=== PATIENT | female | born 1990 | race Caucasian/White ===

== ENCOUNTER → 2022-11-13 13:03 | Outpatient (BNVA) | payer OTHER, SELFPAY | PROVIDERS: PCP Family Medicine; Visit Provider Physician Assistant Surgical ==

== ENCOUNTER 2022-12-05 20:42 | Emergency (ER) | payer OTHER, SELFPAY ==
[2022-12-05 21:09] VITALS: BP 122/80; PULSE 93; RESP 18; TEMP 36.6; O2SAT 99; BMI 37.7
--- NOTE | 2022-12-05 22:44 | ED.ALLEREA ---
HPI - Allergic Reaction General Chief complaint: Dental/Oral Stated complaint: Mouth swelling/numbness in teeth Time Seen by Provider: 12/05/22 22:31 Source: patient Mode of arrival: ambulatory Limitations: no limitations History of Present Illness HPI narrative: 32-year-old female who presents emergency department for evaluation swelling underneath her tongue. Patient states that she took her dog to a dog washing center. She states that she has washed her dog before but this was a new shampoo. She states that her dog with shaking to get shampoo and water off his body. She states that after leaving the dog washing center, while she was driving home, she developed swelling underneath her tongue. She states that she has had no other symptoms . She denied swelling of her tongue, lips, face. The patient denied difficulty swallowing. She denied shortness of breath. She has not developed a rash. She denied lightheadedness, nausea, vomiting. Related Data Previous Rx's Medication Instructions Recorded prednisone 20 mg tablet 60 mg PO DAILY 5 days #15 tabs 12/05/22 Allergies Allergy/AdvReac Type Severity Reaction Status Date / Time amoxicillin Allergy Mild Hives Verified 12/05/22 21:26 cefaclor [From Ceclor] Allergy Mild Unknown Verified 12/05/22 21:26 Review of Systems Review of Systems: Yes all other systems are reviewed and are negative [facility] Past Medical History [facility] Narrative: Past medical history: Asthma Social History Social History Advance Directives: No Advance Directives Information Provided: Yes Physical Exam ED Vital Signs: Vital Signs - 24 hr 12/05/22 21:09 Temperature 97.8 F Pulse Rate 93 Respiratory Rate 18 Blood Pressure 122/80 Pulse Oximetry 99 Oxygen Delivery Method Room Air BMI result Body Mass Index 37.7 Vital signs were normal. General: Awake, alert, female patient, very pleasant cooperative, no distress HEENT: Head is normal cephalic atraumatic, pupils are equal round reactive light, sclera contact however normal, mouth revealed moist membranes with no erythema or exudates, patient has no posterior swelling or swelling of her soft palate, the uvula is midline, she has no trismus, patient very localized swelling underneath her tongue. Neck: Supple, no adenopathy Medical Decision Making Medical Decision Making MDM Narrative: 32-year-old female who presents emergency department for evaluation of localized swelling or neither tongue that occurred around 19:00 hours after she washed her dog with shampoo. The physical examination did reveal localize swelling underneath her tongue with no other concerning signs or symptoms. Patient's presentation is consistent with an allergic reaction. Patient was given Claritin 10 mg orally and prednisone 60 mg orally. She was prescribed prednisone 60 mg once a day for 5 days. She was also advised to take Claritin once a day for 7 days. She was given printed and verbal instructions discharged home Differential Diagnosis Differential diagnosis includes but is not limited to allergic reaction, angioedema Prescription Management I considered prescription management with: Other (Prednisone, Claritin) Chronic Conditions Patient?s care impacted by: Other (Asthma) Discharge Plan Discharge Clinical Impression: Allergic reaction Patient Disposition: Home, Self-Care Instructions: General Allergic Reaction (ED) Additional Instructions: The swelling underneath your tongue is consistent with an allergic reaction (allergic reaction). Take prednisone 20 mg pills, 3 pills once a day for 5 days. While you are taking prednisone, do not take any NSAIDs (Motrin, Advil, ibuprofen, Aleve, naproxen). Take Claritin 10 mg pills, 1 pill once a day for 7 days. Follow-up with your doctor in 2 days. Please return to the emergency department if your symptoms get worse or if you develop any symptoms that are concerning to you. Prescriptions: New prednisone 20 mg tablet 60 mg PO DAILY 5 Days Qty: 15 0RF
[2022-12-05] MEDS: predniSONE 20 MG TABLET 60 MG PO (23:00)
[2022-12-05] MEDS: Loratadine 10 MG TABLET PO (23:00)
== END 2022-12-05 23:01 | disposition home or self-care (01) ==
PROVIDERS: Emergency Provider Emergency Medicine Emergency Medical Services
DX: T78.40XA Allergy, unspecified, initial encounter (principal); X58.XXXA Exposure to other specified factors, initial encounter
CPT/HCPCS: 99282; 99283

== ENCOUNTER 2023-06-03 07:53 | Emergency (ER) | payer OTHER, SELFPAY ==
[2023-06-03 08:26] VITALS: BP 121/44; PULSE 81; RESP 17; TEMP 36.3; O2SAT 97; BMI 34.8
--- NOTE | 2023-06-03 08:53 | ED.FALL ---
HPI - Fall General Chief Complaint: Fall Stated Complaint: Fall/Head inj Time Seen by Provider: 06/03/23 08:50 Source: patient Mode of arrival: ambulatory Limitations: no limitations History of Present Illness HPI Narrative: 32 years old female presented to the emergency department with a chief complaint of head injury. She states she slipped in the ice this morning fell hit the head denies any nausea vomiting. She is ambulatory to the emergency department she has history of chronic neck pain MD complaint: fall Onset (ago): hour(s) (3) Fall from: standing Fall witnessed: no Place fall occurred: street Loss of consciousness: none Prolonged down time: no Context: tripped/slipped Location of injury: head Related Data Previous Rx's Medication Instructions Recorded prednisone 20 mg tablet 60 mg (3 x 20 mg) PO DAILY 5 days 12/05/22 #15 tabs Allergies Allergy/AdvReac Type Severity Reaction Status Date / Time amoxicillin Allergy Mild Hives Verified 12/05/22 21:26 cefaclor [From Ceclor] Allergy Mild Unknown Verified 12/05/22 21:26 Review of Systems Constitutional: Constitutional: Reports no additional constitutional complaints ENT: Reports system reviewed and no additional complaints, except as documented Cardiovascular: Cardiovascular: Reports no additional cardiovascular complaints Respiratory: Respiratory: Reports no additional respiratory complaints Musculoskeletal: Musculoskeletal: Reports no additional musculoskeletal complaints [facility] Past Medical History Attestation statement: The following information was validated with the patient. [facility] Narrative: chronic neck pain Onset Date is defined in the Problem List Problems that require an onset date and time if occurred within 24 hrs of arrival to the ED Aortic Dissection and Rupture; Neurologic impairment; Cardiopulmonary Arrest; Endotracheal Intubation; Insertion or Replacement of Mechanical Circulatory Assist Device Social History Social History Advance Directives: No Physical Exam Vital Signs: Vital Signs: Last Vital Signs Temp 97.3 F 06/03/23 08:26 Pulse 81 06/03/23 08:26 Resp 17 06/03/23 08:26 BP 121/44 L 06/03/23 08:26 Pulse Ox 97 06/03/23 08:26 O2 Del Method Room Air 06/03/23 08:26 BMI result Body Mass Index 34.8 Const: General: cooperative Nutritional Appearance: well nourished Orientation/consciousness: patient oriented x3 Limitations: no limitations HEENT: Head: Yes normal to inspection Ears: hearing grossly normal bilaterally General nose exam: Normal external nose present Face and sinus: Yes normal facial exam Throat: Yes posterior oropharynx normal Neck: Neck: Yes normal visual inspection and Yes full ROM Thyroid: Thyroid normal Chest: Chest palpation & inspection: normal inspection of the chest Resp: Effort & Inspection: normal respiratory effort Auscultation: clear to auscultation bilaterally Cardio: Jugular venous distension: no JVD Rate: regular rate Rhythm: regular rhythm GI: Inspection: Yes normal to inspection Palpation (GI): Soft to palpation, not firm, nontender and no guarding Auscultation: normal bowel sounds Skin: General skin exam: no rashes or lesions noted and elasticity normal Neuro: General: patient oriented x3 Cognition (Neuro): normal cognition Gait exam (Neuro): Normal gait present Medical Decision Making Medical Decision Making MDM Narrative: Patient presented complaining of headache afeter she fell in the ice, will obtain imaging of the brain and C-spine Differential Diagnosis Differential Diagnoses: The differential diagnosis associated with the presentation includes Concussion/subdural hematoma/epidural hematoma Admission/Observation Consideration of admission/observation: Escalation of care including admission/observation considered Independent Interpretation I performed an independent interpretation of an: CT Scan Interpretation: no fx no head bleed Radiology Impression Discussion of test interpretation with radiology: I have reviewed the radiologist's reading. Radiologist Impression: FINDINGS: CT head: There is no intracranial hemorrhage, extra-axial collection, mass effect, or territorial infarction. The ventricles are normal in size without hydrocephalus. The calvarium is intact. The extracranial structures are unremarkable. CT cervical spine: The cervical vertebral bodies demonstrate normal heights and alignment. No fracture is seen. There is mild osteophytic spurring anteriorly at C4-C5. The craniovertebral junction is intact. The facet joints are normally aligned. The lung apices are clear. The cervical soft tissues are unremarkable. CT/CT head/brain wo IV con IMPRESSION: CT HEAD: No acute intracranial abnormality. CT CERVICAL SPINE: No cervical spine fracture or traumatic malalignment. Dictated By: LEVY ANDRES MD Signed By: <Electronically signed by LEVY ANDRES MD in OV> 06/03/23 1000 Discharge Plan Discharge Clinical Impression: Head injury, Concussion without loss of consciousness Patient Disposition: Home, Self-Care Instructions: Head Injury (ED) Prescriptions: No Action prednisone 20 mg tablet 60 mg PO DAILY 5 Days Qty: 15 0RF Referrals: Trisha Tran PA [Primary Care Provider] - 2 days Stand Alone Forms: Work/School Release Interventions: ED Discharge Assessment Last Done: 06/03/23 11:08 Discharge Date/Time: 06/03/23 11:09
== END 2023-06-03 11:09 | disposition home or self-care (01) ==
PROVIDERS: Emergency Provider Emergency Medicine; PCP Physician Assistant
DX: S06.0X0A Concussion without loss of consciousness, initial encounter (principal); M54.2 Cervicalgia; R51.9 Headache, unspecified; W00.0XXA Fall on same level due to ice and snow, initial encounter; Y93.9 Activity, unspecified; Y92.9 Unspecified place or not applicable; Y99.9 Unspecified external cause status
CPT/HCPCS: 70450; 72125; 99283; 99284

== ENCOUNTER 2024-05-12 22:13 | Emergency (ER) | payer OTHER, SELFPAY ==
--- NOTE | 2024-05-12 | ECG_ITS ---
Test Reason : CHEST PAIN Blood Pressure : / mmHG Vent. Rate : 092 BPM Atrial Rate : 092 BPM P-R Int : 128 ms QRS Dur : 090 ms QT Int : 368 ms P-R-T Axes : 052 014 035 degrees QTc Int : 455 ms Normal sinus rhythm Normal ECG No previous ECGs available Referred By: Generic ED Physician Electronically Signed By:GENTRY MAJOR
--- NOTE | ~2024-05-12 | XR_ITS ---
EXAMINATION: XR CHEST CLINICAL INFORMATION: sob, chest pressure, cough COMPARISON: None available. TECHNIQUE: 2 views of the chest were obtained. FINDINGS: No significant abnormality is noted involving the heart, lungs, mediastinum, bony thorax or soft tissues. XR/XR chest 2V IMPRESSION: Unremarkable examination. Electronically signed by: Jose Smith MD 05/12/2024 11:01 PM [facility]
[2024-05-12 22:26] VITALS: BP 125/54; PULSE 86; RESP 16; TEMP 36.7; O2SAT 98; BMI 34.9
[2024-05-12 23:27] LABS: Influenza A PCR NEGATIVE (Negative); Influenza B PCR NEGATIVE (Negative); Resp Syncy Virus RNA Qual PCR NEGATIVE (Negative); SARS COV2 PCR INHOUSE NEGATIVE (Negative)
[2024-05-13 01:21] VITALS: BP 125/67; PULSE 86; RESP 16; TEMP 36.9; O2SAT 100
[2024-05-13 02:56] VITALS: BP 120/61; PULSE 95; RESP 18; TEMP 36.9; O2SAT 96
--- NOTE | 2024-05-13 03:45 | ED.URI ---
HPI - URI/Sore Throat General Chief Complaint: Upper Respiratory Symptoms Stated Complaint: chest pain Time Seen by Provider: 05/13/24 02:17 Source: patient Mode of arrival: ambulatory Limitations: no limitations History of Present Illness ED Provider: HPI Narrative: Patient otherwise healthy complaining of sore throat cough increased shortness breath for last few hours does have a history of asthma using nebulizer treatment does get sick often in the season changes no fever have increased wheezing Related Data Previous Rx's ?Medication ?Instructions ?Recorded prednisone 20 mg tablet 60 mg (3 x 20 mg) PO DAILY 5 days 12/05/22 #15 tabs albuterol sulfate 2.5 mg/3 mL 2.5 mg (3 mL) inhalation Q4-6H PRN 05/13/24 (0.083 %) solution for nebulization shortness of breath or wheezing #90 mL benzonatate 200 mg capsule 200 mg PO TID PRN cough #30 caps 05/13/24 prednisone 20 mg tablet 40 mg (2 x 20 mg) PO DAILY #10 tabs 05/13/24 Allergies Allergy/AdvReac Type Severity Reaction Status Date / Time amoxicillin Allergy Mild Hives Verified 05/12/24 22:27 cefaclor [From Ceclor] Allergy Mild Unknown Verified 05/12/24 22:27 Review of Systems Review of Systems: Yes all other systems are reviewed and are negative [facility] Social History Social History Smoked in Last 30 Days: No Use of substances other than those prescribed or required for medical reasons: No Advance Directives: No Advance Directives Information Provided: No Do you have a plan to hurt others: No Plan Patient : No Physical Exam Vital Signs: Vital Signs: Last Vital Signs Temp 98.5 F 05/13/24 04:18 Pulse 95 05/13/24 04:18 Resp 18 05/13/24 04:18 BP 120/61 05/13/24 04:18 Pulse Ox 96 05/13/24 04:18 O2 Del Method Room Air 05/13/24 04:18 BMI result Body Mass Index 34.9 Appearance: Alert. Oriented X3. No acute distress. Eyes: No pallor or icterus ENT: Pharynx normal. Oral Mucosa moist Neck: Normal inspection. Neck supple. CVS: Normal heart rate and rhythm. Pulses normal. Respiratory: No respiratory distress. Equal air entry bilateral, prolonged expiration Abdomen: Soft and nontender. Bowel sounds are present, no mass palpable, no CVA tenderness Skin: Skin warm and dry. Normal skin color. Normal skin turgor. Extremities: No lower extremity edema. No calf tenderness Neuro: Oriented X 3. No motor deficit. Medications Administered Discontinued Medications Generic Name Dose Route Start Last Admin Trade Name Freq PRN Reason Stop Dose Admin Dexamethasone 10 mg 05/13/24 03:59 05/13/24 04:11 Dexamethasone 2 Mg Tablet PO 05/13/24 04:00 10 mg ONCE ONE Administration Guaifenesin/Codeine Phosphate 10 ml 05/13/24 03:59 05/13/24 04:11 Guaifen/Codeine Sf 200/20/10ml 10 Ml Liquid PO 05/13/24 04:00 10 ml ONCE ONE Administration Medical Decision Making Lab Data MDM Lab Attestation statement: I reviewed the patient's lab results. Labs: Lab Results 05/12/24 Range/Units 22:37 Influenza Type A (PCR) NEGATIVE (Negative) Influenza Type B (PCR) NEGATIVE (Negative) RSV RNA Qual (PCR) NEGATIVE (Negative) SARS-CoV-2 RNA (RT-PCR) NEGATIVE (Negative) Independent Interpretation I performed an independent interpretation of an: Plain X-Ray Radiology Impression Discussion of test interpretation with radiology: I have reviewed the radiologist's reading. Radiologist Impression: [address] [address] XRay Report Signed Patient: Brisa Horne MR#: [id number] : 1990 Acct:[id number] Age/Sex: 33 / F ADM Date: 05/12/24 Loc: .ED Attending Dr: Ordering Physician: Generic ED Physician Date of Service: 05/12/24 Procedure(s): XR chest 2V Accession Number(s): [id number] cc: Generic ED Physician; Trisha Tran~ EXAMINATION: XR CHEST CLINICAL INFORMATION: sob, chest pressure, cough COMPARISON: None available. TECHNIQUE: 2 views of the chest were obtained. FINDINGS: No significant abnormality is noted involving the heart, lungs, mediastinum, bony thorax or soft tissues. XR/XR chest 2V IMPRESSION: Unremarkable examination. Electronically signed by: Jose Smith MD 05/12/2024 11:01 PM [facility] Discharge Plan Discharge Clinical Impression: Bronchitis Patient Disposition: Home, Self-Care Instructions: Acute Bronchitis (ED) Additional Instructions: Continue your inhaler take cough drops and prednisone as prescribed Your x-ray COVID flu RSV negative Likely have viral infection which should get better in few days Report to the PCP/ER if gets worse Prescriptions: New albuterol sulfate 2.5 mg /3 mL (0.083 %) solution for nebulization 2.5 mg inhalation Q4-6H PRN (Reason: shortness of breath or wheezing) Qty: 90 0RF benzonatate 200 mg capsule 200 mg PO TID PRN (Reason: cough) Qty: 30 0RF prednisone 20 mg tablet 40 mg PO DAILY Qty: 10 0RF No Action prednisone 20 mg tablet 60 mg PO DAILY 5 Days Qty: 15 0RF Interventions: ED Discharge Assessment Last Done: 05/13/24 04:18 Discharge Date/Time: 05/13/24 04:19 Print Language: Malay
[2024-05-13] MEDS: guaiFEN/Codeine SF 200/20/10ML 10 ML LIQUID PO (04:11)
[2024-05-13] MEDS: dexAMETHasone 2 MG TABLET 10 MG PO (04:11)
[2024-05-13 04:18] VITALS: BP 120/61; PULSE 95; RESP 18; TEMP 36.9; O2SAT 96
== END 2024-05-13 04:19 | disposition home or self-care (01) ==
PROVIDERS: Emergency Provider Internal Medicine; PCP Physician Assistant
DX: J40 Bronchitis, not specified as acute or chronic (principal); R07.89 Other chest pain; R05.9 Cough, unspecified; R06.02 Shortness of breath; Z03.818 Encounter for observation for suspected exposure to other biological agents ruled out
CPT/HCPCS: 0241U; 71046; 93005; 99283; 99285; J8540

== ENCOUNTER → 2024-05-12 22:15 | Outpatient (BNV) | payer OTHER, SELFPAY | PROVIDERS: Emergency Provider Internal Medicine; PCP Physician Assistant; Visit Provider Internal Medicine | DX: R07.9 Chest pain, unspecified (principal) | CPT/HCPCS: 93010 ==

== ENCOUNTER 2024-05-25 09:58 | Outpatient (AMB) | payer OTHER, SELFPAY ==
--- NOTE | 2024-05-25 10:06 | HO.SPINEOV ---
Vital Signs 05/25/24 10:11 Height 5 ft 5 in Weight 205 lb BMI 34.1 Intake Visit Reasons: Neck pain Intake Note: Ms. Horne is here today c/o neck pain that radiates to right arm causing tingling on her finger tips. 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 She is a very nice 33-year-old female who presents to the office today for a right-sided neck pain which radiates along her trapezius into her right shoulder, with some pain in the subscapular rotator cuff area. The pain has been there for 7 or 8 years, steadily getting worse, over the last year so in his been more intense. She will take 800 Motrin 2 to 3 times a day. She has been through physical therapy for her neck and her shoulder without much effect. She underwent cortisone injections in her shoulder which only seemed to make things worse. She underwent a C6 right-sided TFE which may have given her a little bit of relief for few weeks but nothing that was able to take away the discomfort. There is a little bit of tingling in her fingers when she 1st wakes up in the morning which generally nothing throughout the day. There is no intense toothache like pain radiating down the arm. She comes today for evaluation with an MRI showing some mild foraminal narrowing at the right at C5-6. PMH: Asthma Social hx: She smokes about half a pack a day, no recreational drugs, occasional alcohol Medications: Vitamin-D Allergies: Amoxicillin and Ceclor Physical exam: Awake alert oriented no acute distress, patient has full strength of bilateral upper extremities with normal reflexes, she has does demonstrate pain along her neck and into her subscapular region with internal external rotation as well as various impingement testing of the shoulder. Imaging review: Cervical MRI done at [facility] shows very mild disc bulge at C5-6 with some very subtle narrowing of the foramen, no nerve compression. Impression: 33-year-old female presents with right-sided neck pain which radiates along her trapezius into her shoulder and her subscapular region. She has been through numerous rounds of conservative management including injections in her shoulder, neck as well as physical therapy and Motrin etc.. Unfortunately nothing is ever giving her significant relief. There was some temporary relief with the C6 TFE for few weeks. Her MRI shows that she has some very mild disc bulging on the right at C5-6 but no evidence of nerve compression, the foramen is wide open and I do not see anything that would lend itself to being a surgical target. She did have a lot of reproducible pain with shoulder testing but has told me that the previous workups for that an injections have all only made things worse so I am not sure how that connects to all of this. It does not look like she would be a surgical candidate based on the MRI. We would be happy to see her back if something changes. Thank you for allowing us to care for your patient. The total time spent with this visit with this patient was 45 minutes reviewing history, physical exam, cervical MRI imaging review, and implementation of treatment plan or further diagnostic testing Bert Iraheta MD,PhD [facility] Coding Level of Care Code New Pt Level 4 (84066) Diagnoses Cervical disc disorder M50.90
[2024-05-25 10:11] VITALS: BMI 34.1
== END 2024-05-25 10:44 | disposition home or self-care (01) ==
PROVIDERS: PCP Physician Assistant; Referring Provider Physical Medicine & Rehabilitation; Visit Provider Physician Assistant
DX: M50.90 Cervical disc disorder, unspecified, unspecified cervical region (principal)
CPT/HCPCS: 99204

== ENCOUNTER → 2024-05-25 09:58 | Outpatient (BNVA) | payer OTHER, SELFPAY | PROVIDERS: PCP Physician Assistant; Referring Provider Physical Medicine & Rehabilitation; Visit Provider Physician Assistant | DX: M50.90 Cervical disc disorder, unspecified, unspecified cervical region (principal) | CPT/HCPCS: 99202 ==

== ENCOUNTER 2024-12-02 13:31 | Outpatient (AMB) | payer OTHER, SELFPAY ==
--- NOTE | 2024-12-02 13:33 | A.OFFVIS_ITS ---
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 On Nexplanon [facility] Medical History Asthma Surgical History History of surgery on lower extremity Family History Mother Bladder cancer Father Heart disease Diabetes Social History Household Members: Significant Other Housing: House Alcohol intake: current Alcohol intake frequency: holidays/special occasions only Patient Tobacco Use Status: Former Tobacco user Cigarettes Per Day: 20 Years Smoked: 15 Current occupational status: employed Current occupation: [employer] Sexually active: Yes Sexual orientation: Straight/Heterosexual Gender identity: Female Female Reproductive History Menstrual control method: implanted Total pregnancies: 0 Review of Systems Const All systems reviewed & are unremarkable except as noted in HPI and below Card Reports as per HPI Resp Reports as per HPI GI Reports as per HPI and Reports no additional complaints Reports as per HPI Physical Exam Vital Signs: Last Vital Signs BP 118/68 12/02/24 13:37 BMI result Body Mass Index 34.4 Const General: cooperative, healthy appearing and comfortable Chest Chest palpation & inspection: normal inspection of the chest and normal palpation of entire chest wall Breast/axilla inspection: normal inspection of the breasts and normal inspection of the axillae Breast/axilla palpation: normal palpation of the breasts, normal palpation of the axillae and no axillary lymphadenopathy Resp Effort & Inspection: normal respiratory effort Auscultation: clear to auscultation bilaterally Percussion: percussion normal Cardio Palpation: normal PMI Rate: regular rate Rhythm: regular rhythm Heart sounds: no murmurs and no rubs Peripheral pulses: Peripheral pulses 2+ throughout GI Inspection: Yes normal to inspection Palpation (GI): Soft to palpation, nontender, no guarding, not rigid and No hepatosplenomegaly present Percussion: Yes normal to percussion Auscultation: normal bowel sounds Rectal Exam - Female: deferred General: Yes bladder normal to palpation External Female Exam: No lesion Speculum Exam - Vagina: normal appearance of the vagina, normal palpation, normal vaginal discharge and not erythematous Speculum Exam - Cervix: normal appearance of the cervix and normal palpation Bimanual exam- vagina & uterus: normal bimanual exam, normal palpation, uterine size normal, bladder normal to palpation, consistency normal and normal palpation Bimanual Exam- Adnexa, other: normal adnexae, no masses and no tenderness Assessment & Plan Assessment & Plan (1) Well woman exam: Code(s): Z01.419 - Encounter for gynecological examination (general) (routine) without abnormal findings Category: Medical Plan: Cotesting done. Counseled the patient about the recommended dietary allowance of 1000 mg of Calcium & 600 IU of vitamin D. The patient was instructed to perform monthly self-breast exams and to schedule an annual exam in a year; All questions answered and the patient verbalized understanding. Instructed the patient to schedule annual exam in a year Medications: Discontinued benzonatate Discontinued Reason: Patient Completed Course 200 mg PO TID PRN 30 caps 0RF cough prednisone Discontinued Reason: Patient Completed Course 40 mg (2 x 20 mg) PO DAILY 10 tabs 0RF Coding Level of Care Code New Pt Prev Care 18-39yr([id number] Diagnoses Well woman exam Z01.419
[2024-12-02 13:37] VITALS: BP 118/68; BMI 34.4
--- OUTSIDE RECORDS SUMMARY | 2024-12-02 14:21 | XMS_ITS | Referral Summary ---
Author Organization [facility] Address [address] [place] [address] Care Team Providers Care Saw Man Name Role Phone An Foxjean paulzachariahalden Benoitcurtis Primary Care Provi jes Encounters Date Type Department Care Team Description 11/26/2024 3:00 PM EDT Follow-Up [facility] [address] [place] [id number] Edgar Stewart MD Myofascial pain syndrome (Primary Dx) from Last 3 Months Allergies Active Allergy Reactions Criticality Noted Date Comments Amoxicillin Hives 10/12/2015 Cefaclor Hives 06/05/2024 Medications Hospital, Clinic, or Other Facility Administered Medication Ordered Dose Route Frequency Start Date End Date Status lidocaine w/ preservative (XYLOCAINE) 1% (10 mg/mL) injection 1 mLIndications:Myofa scial pain syndrome 1 mL injection One-time injection 11/26/2024 11/26/2024 Ended lidocaine w/ preservative (XYLOCAINE) 1% (10 mg/mL) injection 1 mLIndications:Myofa scial pain syndrome 1 mL injection One-time injection 11/26/2024 11/26/2024 Ended lidocaine w/ preservative (XYLOCAINE) 1% (10 mg/mL) injection 1 mLIndications:Myofa scial pain syndrome 1 mL injection One-time injection 11/26/2024 11/26/2024 Ended lidocaine w/ preservative (XYLOCAINE) 1% (10 mg/mL) injection 1 mLIndications:Myofa scial pain syndrome 1 mL injection One-time injection 11/26/2024 11/26/2024 Ended lidocaine w/ preservative (XYLOCAINE) 1% (10 mg/mL) injection 1 mLIndications:Myofa scial pain syndrome 1 mL injection One-time injection 11/26/2024 11/26/2024 Ended lidocaine w/ preservative (XYLOCAINE) 1% (10 mg/mL) injection 1 mLIndications:Myofa scial pain syndrome 1 mL injection One-time injection 11/26/2024 11/26/2024 Ended Active Problems No known active problems Social History Tobacco Use Types Packs/Day Years Used Date Smoking Tobacco: Never Assessed Comments Unknown Sex and Gender Information Value Date Recorded Sex Assigned at Female 04/30/2024 11:57 AM EST Legal Sex Female 11:54 AM EST Gender Identity Female 06/03/2024 6:51 PM EST Sexual Orientation Straight 06/03/2024 6: 51 PM EST Last Filed Vital Signs Vital Sign Reading Time Taken Comments Blood Pressure 132/90 08/24/2024 1:23 PM EDT Pulse 54 08/24/2024 1:23 PM EDT Temperature 36.4 C (97.5 F) 08/24/2024 12:54 PM EDT Respiratory Rate - - Oxygen Saturation 98% 08/24/2024 1:12 PM EDT Inhaled Oxygen Concentration - - Weight - - Height - - Body Mass Index - - Plan of Treatment Not on file Procedures * Due to [place] [employer] law, this organization might not be sharing negative HIV tests. Procedure Name Priority Date/Time Associated Diagnosis Comments DE INJECT TRIGGER POINTS, > 3 Routine 11/26/2024 3:00 PM EDT Myofascial pain syndrome DE INJECT TRIGGER POINTS, > 3 Routine 11/26/2024 3:00 PM EDT Myofascial pain syndrome from Last 3 Months Results * Due to [place] law, this organization might not be sharing negative HIV tests. * DE INJECT TRIGGER POINTS, > 3 (11/26/2024 3:00 PM EDT) Narrative Edgar Stewart MD - 11/26/2024 3:00 PM EDT Edgar Stewart MD 11/26/2024 3:42 PM Inject Trigger Point: Head & Neck Date/Time: 11/26/2024 3:00 PM Performed by: Edgar Stewart MD Authorized by: Edgar Stewart MD Consent: Patient identity confirmed: Name and with patient Verbal consent obtained: Yes Written consent obtained: Yes Risk and benefits discussed: Yes Written informed consent was obtained from the patient. Patient states understanding of procedure being performed: Yes Patient's understanding of procedure matches consent: Yes [place] Protocol: Procedure consent matches procedure scheduled: Yes All relevant documents/tests are correctly identified, labeled, and matched to patient: Yes Relevant tests/ Imaging studies available/reviewed: Yes Correct site marked: Yes Required blood products, implants, devices and special equipment available: Yes Immediately prior to the procedure a time out was called: Yes An attending physician was present for the procedure OR the procedure was performed by an Advanced Practice Provider: Yes Procedure Details: Site One: Injected Muscles: cervical paraspinals Needle size: 25 G 1 mL lidocaine w/ preservative 1% (10 mg/mL) Site Two: Injected Muscles: levator scapulae Needle size: 25 G 1 mL lidocaine w/ preservative 1% (10 mg/mL) Site Three: Injected Muscles: trapezius Needle size: 25 G 1 mL lidocaine w/ preservative 1% (10 mg/mL) Patient tolerance: patient tolerated the procedure well with no immediate complications Dressing: Band-Aid Post-procedure Details: Patient tolerance: patient tolerated the procedure well with no immediate complications Instructions: post-procedure instructions were reviewed Discharge: patient discharged from clinic in stable condition Edgar Stewart MD IN CLINIC/BEDSIDE ORDERABLES F inal Result * DE INJECT TRIGGER POINTS, > 3 (11/26/2024 3:00 PM EDT) Narrative Edgar Stewart MD - 11/26/2024 3:00 PM EDT Edgar Stewart MD 11/26/2024 3:42 PM Inject Trigger Point: Head & Neck Date/Time: 11/26/2024 3:00 PM Performed by: Edgar Stewart MD Authorized by: Edgar Stewart MD Consent: Patient identity confirmed: Name and with patient Verbal consent obtained: Yes Written consent obtained: Yes Risk and benefits discussed: Yes Written informed consent was obtained from the patient. Patient states understanding of procedure being performed: Yes Patient's understanding of procedure matches consent: Yes [place] Protocol: Procedure consent matches procedure scheduled: Yes All relevant documents/tests are correctly identified, labeled, and matched to patient: Yes Relevant tests/ Imaging studies available/reviewed: Yes Correct site marked: Yes Required blood products, implants, devices and special equipment available: Yes Immediately prior to the procedure a time out was called: Yes An attending physician was present for the procedure OR the procedure was performed by an Advanced Practice Provider: Yes Procedure Details: Site One: Injected Muscles: cervical paraspinals Needle size: 25 G 1 mL lidocaine w/ preservative 1% (10 mg/mL) Site Two: Injected Muscles: levator scapulae Needle size: 25 G 1 mL lidocaine w/ preservative 1% (10 mg/mL) Site Three: Injected Muscles: trapezius Needle size: 25 G 1 mL lidocaine w/ preservative 1% (10 mg/mL) Patient tolerance: patient tolerated the procedure well with no immediate complications Dressing: Band-Aid Post-procedure Details: Patient tolerance: patient tolerated the procedure well with no immediate complications Instructions: post-procedure instructions were reviewed Discharge: patient discharged from clinic in stable condition Edgar Stewart MD IN CLINIC/BEDSIDE ORDERABLES F inal Result from Last 3 Months Insurance [place] [phone] Care Teams Saw Man Relationship Specialty Start Date End Date Shankar Fox [address] [place] [id number] PCP - General 05/13/24
--- OUTSIDE RECORDS SUMMARY | 2024-12-02 14:21 | XMS_ITS | Clinical Summary ---
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 WILFRED >=32 ug/ml: Resistant Escherichia coli Piperacillin/Tazobactam WILFRED 8 ug/ml: Susceptible Escherichia coli Cefazolin (Urine) WILFRED >=32 ug/ml: Resistant Escherichia coli Cefoxitin WILFRED <=4 ug/ml: Susceptible Escherichia coli Ceftazidime WILFRED <=0.5 ug/ml: Susceptible Escherichia coli Ceftriaxone WILFRED <=0.25 ug/ml: Susceptible Escherichia coli Cefepime WILFRED <=0.12 ug/ml: Susceptible Escherichia coli Meropenem WILFRED <=0.25 ug/ml: Susceptible Escherichia coli Amikacin WILFRED 2 ug/ml: Susceptible Escherichia coli Gentamicin WILFRED >=16 ug/ml: Resistant Escherichia coli Ciprofloxacin WILFRED <=0.06 ug/ml: Susceptible Escherichia coli Levofloxacin WILFRED <=0.12 ug/ml: Susceptible Escherichia coli Nitrofurantoin WILFRED <=16 ug/ml: Susceptible Escherichia coli Trimethoprim/Sulfamethoxazole WILFRED >=320 ug/ml: Resistant us Trisha MONTGOMERY LAB MICROBIOLOGY - GENERAL OR DERABLES Final Result [facility] [address] [place] [address], [place] [phone] * Rheumatoid factor (11/12/2024 11:09 AM EDT) Rheumatoid Factor <10.0 <15.0 I Unit/mL LAB CHEMISTRY METHOD 11/12/2024 3:32 PM EDT [facility] Blood Venous blood specimen / Unknown Venipuncture / Unknown 11/12/2024 11:09 AM EDT 11/12/2024 11:09 AM EDT Trisha MONTGOMERY LAB BLOOD ORDERABLES Final Re sult Performing Organization Address [facility]/ZIP Co de Phone Number [facility] [address] [place] [address], * HCG, quantitative (11/12/2024 11:09 AM EDT) hCG Quant 1 mIU/mL LAB CHEMISTRY METHOD 11/12/2024 3:33 PM EDT [facility] Blood Venous blood specimen / Unknown Venipuncture / Unknown 11/12/2024 11:09 AM EDT 11/12/2024 11:09 AM EDT Narrative [facility] - 11/12/2024 3:33 PM EDT Quantitative HCG Reference Ranges Time after Conception MIU/ML 0.2-1 Week 5-50 1-2 Weeks 50-500 2-3 Weeks 100-5,000 3-4 Weeks 500-10,000 4-5 Weeks 1,000-50,000 5-6 Weeks 10,000-100,000 6-8 Weeks 15,000-200,000 2-3 Months 10,000-100,000 2nd Trimester 1,000-94,000 3rd Trimester 2,500-90,000 Non- Females 1-3 Shankar Fox MD LAB BLOOD ORDERA BLES Final Result Performing Organization Address City/[facility]/ZIP Co de Phone Number [facility] [address] [place] [address], [place] [phone] * Uric acid (11/12/2024 11:09 AM EDT) Uric Acid 4.9 3.1 - 7.8 mg/dL LAB CHEMISTRY METHOD 11/12/2024 3:32 PM EDT [facility] Blood Venous blood specimen / Unknown Venipuncture / Unknown 11/12/2024 11:09 AM EDT 11/12/2024 11:09 AM EDT us Trisha MONTGOMERY LAB BLOOD ORDERABLES Final Re sult Performing Organization Address [facility]/ZIP Co de Phone Number [facility] [address] [place] [address], [place] [phone] * Hemoglobin A1c (11/12/2024 11:09 AM EDT) Pathologist [facility] Hemoglobin A1C 5.1 <6.5 % LAB CHEMISTRY METHOD 11/12/2024 1:50 PM EDT [facility] Mean Bld Glu Estim. 100 mg/dL LAB CHEMISTRY METHOD 11/12/2024 1:50 PM EDT [facility] Blood Venous blood specimen / Unknown Venipuncture / Unknown 11/12/2024 11:09 AM EDT 11/12/2024 11:09 AM EDT us Trisha MONTGOMERY LAB BLOOD ORDERABLES Final Re sult [facility] [address] [place] [address], [place] [phone] * (ABNORMAL) Comprehensive metabolic panel (11/12/2024 11:09 AM EDT) Sodium 142 133 - 145 mmol/L LAB CHEMISTRY METHOD 11/12/2024 3:33 PM EDT [facility] Potassium 4.3 3.5 - 5.5 mmol/L LAB CHEMISTRY METHOD 11/12/2024 3:33 PM [facility] Chloride 109 96 - 110 mmol/L LAB CHEMISTRY METHOD 11/12/2024 3:33 PM [facility] CO2 25 21 - 32 mmol/L LAB CHEMISTRY METHOD 11/12/2024 3:33 PM [facility] Anion Gap 8 3 - 11 LAB CHEMISTRY METHOD 11/12/2024 3:33 PM [facility] Glucose 86 70 - 100 mg/dL LAB CHEMISTRY METHOD 11/12/2024 3:33 PM [facility] BUN 15 5 - 25 mg/dL LAB CHEMISTRY METHOD 11/12/2024 3:33 PM [facility] Creatinine 0.97 0.50 - 1.10 mg/dL LAB CHEMISTRY METHOD 11/12/2024 3:33 PM [facility] eGFR 80 >=60 mL/min/1. 73m2 LAB CHEMISTRY METHOD 11/12/2024 3:33 PM [facility] Comment:Calculation based on the Chronic Kidney Disease Epidemiology Collaboration (CKD-EPI) equation refit without adjustment for race. BUN/Creatinine Ratio 15.5 LAB CHEMISTRY METHOD 11/12/2024 3:33 PM [facility] Calcium 9.4 8.5 - 10.5 mg/dL LAB CHEMISTRY METHOD 11/12/2024 3:33 PM [facility] AST (SGOT) 11 10 - 42 unit/L LAB CHEMISTRY METHOD 11/12/2024 3:33 PM [facility] ALT (SGPT) 28 10 - 60 unit/L LAB CHEMISTRY METHOD 11/12/2024 3:33 PM [facility] Alkaline Phosphatase 31(L) 42 - 121 unit/L LAB CHEMISTRY METHOD 11/12/2024 3:33 PM [facility] Total Protein 7.1 6.0 - 8.0 g/dL LAB CHEMISTRY METHOD 11/12/2024 3:33 PM EDT [facility] Albumin 4.2 3.2 - 5.0 g/dL LAB CHEMISTRY METHOD 11/12/2024 3:33 PM EDT [facility] Total Bilirubin 0.6 0.0 - 1.4 mg/dL LAB CHEMISTRY METHOD 11/12/2024 3:33 PM EDT [facility] Blood Venous blood specimen / Unknown Venipuncture / Unknown 11/12/2024 11:09 AM EDT 11/12/2024 11:09 AM EDT Trisha MONTGOMERY LAB BLOOD ORDERABLES Final Re sult [facility] [address] [place] [address], [place] [phone] * Cervical Cancer Screening: HPV (07/15/2020) Pathologist [facility] Cervical Cancer Screening: HPV no interpretation , abstracted Historical Provider HEALTH MAINTENANCE Final Result from Last 3 Months or Most Recently Relevant to Health Maintenance Insurance [facility] [employer] [facility] Care Teams Ultrasound Specialist Relationship Specialty Start Date End Date Shankar Fox MD [address] [facility], [place] PCP - General Internal Medicine 10/31/21
== END 2024-12-02 14:02 | disposition home or self-care (01) ==
LOC: HO.HWS 13:31
PROVIDERS: PCP Physician Assistant; Visit Provider Obstetrics & Gynecology
DX: Z01.419 Encounter for gynecological examination (general) (routine) without abnormal findings (principal); Z32.02 Encounter for pregnancy test, result negative
CPT/HCPCS: 99385; 99459

== ENCOUNTER 2024-12-02 13:31 | Outpatient (REF) | payer OTHER, SELFPAY | END 2024-12-02 13:32 | disposition home or self-care (01) | LOC: HO.LNP 13:31 | PROVIDERS: PCP Physician Assistant; Visit Provider Obstetrics & Gynecology | DX: Z01.419 Encounter for gynecological examination (general) (routine) without abnormal findings (principal); N93.9 Abnormal uterine and vaginal bleeding, unspecified | CPT/HCPCS: 81025; 87626; 88175; 99385 ==